=== PATIENT | male | born 1995 | race Caucasian/White ===

== ENCOUNTER 2021-07-05 09:38 | Emergency (ER) | payer MEDICAID ==
[~2021-07-05] VITALS: Ht 175.3 cm; Wt 96.0 kg
[2021-07-05 09:55] VITALS: BP 156/103
[2021-07-05 10:48] LABS: BASOPHILS % 0.6 % (0.0-2.0); EOSINOPHILS % 0.3 % (0.0-5.0); HEMATOCRIT. 45.2 % (42.0-52.0); HEMOGLOBIN. 15.3 g/dL (14.0-18.0); LYMPHOCYTES % 15.2 % (20.0-50.0); MEAN CORPUSCULAR HEMOGLOBIN 28.1 pg (28.0-32.0); MEAN CORPUSCULAR VOLUME 82.8 fL (80.0-94.0); MEAN PLATELET VOLUME 8.2 fl (7.4-10.4); MONOCYTES % 9.3 % (2.0-8.0); NEUTROPHILS % 74.6 % (40.0-76.0); PLATELET 280 x1000/uL (130-400); RED BLOOD CELL COUNT 5.45 mill/uL (4.7-6.1); RED CELL DISTRIBUTION WIDTH 13.4 % (11.6-14.6)
[2021-07-05 10:54] LABS: CHLORIDE 105 mEq/L (98-107)
[2021-07-05 10:57] LABS: PROTHROMBIN TIME 10.5 sec (9.6-11.0)
[2021-07-05] MEDS ORDERED: DOCU100T MT (13:40)
[2021-07-05] MEDS ORDERED: HYDR25SU11 RC (13:40)
== END 2021-07-05 14:17 | disposition home or self-care (01) ==
LOC: ER 09:38
DX: M54.10 Radiculopathy, site unspecified (principal); K64.4 Residual hemorrhoidal skin tags
CPT/HCPCS: 36415; 80053; 85025; 93971; 99284

== ENCOUNTER 2021-07-11 12:05 | Emergency (ER) | payer MEDICAID ==
[~2021-07-11] VITALS: Ht 170.2 cm; Wt 96.0 kg
[~2021-07-11 12:05] MED LIST: DOCU100T MT; HYDR25SU11 RC
[2021-07-11 13:00] LABS: CLARITY URINE CLEAR (CLEAR); COLOR URINE YELLOW (YELLOW); KETONES URINE TRACE (NEGATIVE); LEUKOCYTE ESTERASE URINE NEGATIVE (NEGATIVE); NITRITE URINE NEGATIVE (NEGATIVE); OCCULT BLOOD URINE NEGATIVE (NEGATIVE); PH URINE 6.5 (4.5-8.0); PROTEIN URINE 3+ (NEGATIVE); SPECIFIC GRAVITY URINE 1.024 (1.005-1.030)
[2021-07-11] MEDS ORDERED: CLOT10TR2 MT (13:44)
[2021-07-11 14:00] VITALS: BP 147/89
== END 2021-07-11 14:34 | disposition home or self-care (01) ==
LOC: ER 12:05
DX: B37.0 Candidal stomatitis (principal); M54.9 Dorsalgia, unspecified
CPT/HCPCS: 81003; 99283

== ENCOUNTER 2021-07-22 17:22 | Emergency (ER) | payer MEDICAID ==
[~2021-07-22] VITALS: Ht 167.6 cm; Wt 96.0 kg
[~2021-07-22 17:22] MED LIST changes: +CLOT10TR2 MT
[2021-07-22 17:30] VITALS: BP 169/100
[2021-07-22 18:20] LABS: BASOPHILS % 0.7 % (0.0-2.0); EOSINOPHILS % 0.8 % (0.0-5.0); HEMATOCRIT. 45.6 % (42.0-52.0); HEMOGLOBIN. 15.2 g/dL (14.0-18.0); LYMPHOCYTES % 21.5 % (20.0-50.0); MEAN CORPUSCULAR VOLUME 83.9 fL (80.0-94.0); MEAN PLATELET VOLUME 8.7 fl (7.4-10.4); PLATELET 272 x1000/uL (130-400); RED BLOOD CELL COUNT 5.43 mill/uL (4.7-6.1); RED CELL DISTRIBUTION WIDTH 13.3 % (11.6-14.6)
[2021-07-22 18:26] LABS: CHLORIDE 105 mEq/L (98-107)
[2021-07-22] MEDS ORDERED: FAMO40TA70 MT (19:52)
== END 2021-07-22 20:50 | disposition home or self-care (01) ==
LOC: ER 17:22
DX: K21.9 Gastro-esophageal reflux disease without esophagitis (principal); K29.70 Gastritis, unspecified, without bleeding; F41.9 Anxiety disorder, unspecified
CPT/HCPCS: 36415; 71045; 80053; 83880; 84484; 85025; 93005; 99285